=== PATIENT | female | born 1975 | race Caucasian/White ===

== ENCOUNTER 2020-10-08 09:45 | Emergency (ER) | payer MEDICAID, OTHER ==
[~2020-10-08] VITALS: Ht 162.6 cm; Wt 61.2 kg
[2020-10-08 11:15] VITALS: BP 135/85
== END 2020-10-08 11:29 | disposition home or self-care (01) ==
LOC: ER 09:45
DX: M25.512 Pain in left shoulder (principal); M62.838 Other muscle spasm
CPT/HCPCS: 73030